=== PATIENT | female | born 1985 ===

== ENCOUNTER 2021-09-08 12:15 | Inpatient (IN) | payer OTHER ==
[~2021-09-08] VITALS: Ht 162.6 cm; Wt 86.6 kg
[2021-09-20] MEDS ORDERED: PRENATAL + DHA1 EAC1 (08:33)
[2021-09-20] MEDS ORDERED: FOLIC ACID0.8 M1 (08:33)
[2021-09-20] MEDS ORDERED: PEPCID AC10 MG (08:33)
== END 2021-09-23 16:06 | disposition home or self-care (01) | DRG 788 ==
LOC: OB/GYN 09-19 07:16 → LDR 09-19 07:16 → SURH 09-20 12:15 → O/R 09-20 20:39 → OB/GYN 09-20 23:49
PROVIDERS: ADMIT Obstetrics & Gynecology; ATTEND Obstetrics & Gynecology
PROC: 4A1HXFZ Monitoring of Products of Conception, Cardiac Rhythm, External Approach (ICD-10-PCS; 2021-09-20)
PROC: 10D00Z1 Extraction of Products of Conception, Low, Open Approach (ICD-10-PCS; principal; 2021-09-20 18:30)
DX: O62.1 Secondary uterine inertia (principal); O65.9 Obstructed labor due to maternal pelvic abnormality, unspecified; Z3A.40 40 weeks gestation of pregnancy; Z37.0 Single live birth

== ENCOUNTER 2021-09-26 21:11 | Emergency (ER) | payer OTHER ==
[~2021-09-26] VITALS: Ht 162.6 cm; Wt 79.4 kg
[~2021-09-26 21:11] MED LIST: FOLIC ACID0.8 M1; PEPCID AC10 MG; PRENATAL + DHA1 EAC1
== END 2021-09-26 22:24 | disposition home or self-care (01) ==
LOC: ER 21:11
DX: D78.89 Other postprocedural complications of the spleen (principal)